=== PATIENT | female | born 1965 | race Caucasian/White ===

== ENCOUNTER 2017-05-18 07:15 | Observation (INO) | payer OTHER ==
[2017-06-29] MEDS ORDERED: GABAPENTIN 400 MG CAP PO ONE (06:14)
[2017-06-29] MEDS ORDERED: CLINDAMYCIN 900 MG/DEXTROSE 50 ML IV ONE (06:14)
[2017-06-29] MEDS ORDERED: PHENAZOPYRIDINE HCL 100 MG TAB PO ONE (06:14)
[2017-06-29] MEDS ORDERED: ACETAMINOPHEN 500 MG TAB PO ONE (06:14)
[2017-06-29] MEDS ORDERED: LIDOCAINE 1% 2 ML INJ ID PRN (06:19)
[2017-06-29] MEDS ORDERED: LR 1,000 ML IV ONE (06:19)
--- NOTE | 2017-06-29 07:07 | PDHPUP ---
History & Physical Update H&P update statement: This history and physical update is based on an assessment of the patient which was completed after admission or registration (within 24 hours), but prior to the surgery/procedure. H&P update: H&P reviewed & patient examined, no change in patient's condition since H&P completed
[2017-06-29] MEDS ORDERED: MIDAZOLAM 2 MG/2 ML VIAL ONE (07:10)
[2017-06-29] MEDS ORDERED: BUPIVACAINE 0.5% 30 ML SDV ONE (07:15)
[2017-06-29] MEDS ORDERED: fentaNYL 100 MCG/2 ML INJ ONE (07:21)
[2017-06-29] MEDS ORDERED: PROPOFOL/EMULSION 500 MG/50 ML BOTTLE IV ONE (07:21)
[2017-06-29] MEDS ORDERED: ALBUMIN 5% 250 ML BOTTLE IV ONE (07:26)
[2017-06-29] MEDS ORDERED: DEXMEDETOMIDINE HCL 200 MCG/2 ML VIAL IV ONE (07:27)
[2017-06-29] MEDS ORDERED: ONDANSETRON 4 MG/2 ML VIAL ONE (07:53)
[2017-06-29] MEDS ORDERED: SUGAMMADEX SODIUM 200 MG/2 ML VIAL IVP ONE (07:53)
[2017-06-29] MEDS ORDERED: LIDOCAINE 2% 5 ML SDV ONE (07:53)
[2017-06-29] MEDS ORDERED: KETOROLAC 30 MG/1 ML SDV ONE (07:53)
[2017-06-29] MEDS ORDERED: DEXAMETHASONE 4 MG/ML VIAL ONE ×2 (07:53→18:48)
[2017-06-29] MEDS ORDERED: ROCURONIUM 50 MG/5 ML VIAL ONE (07:53)
[2017-06-29] MEDS ORDERED: OXYCODONE/APAP 5/325 TAB PO PRN (08:34)
[2017-06-29] MEDS ORDERED: METOCLOPRAMIDE 10 MG/2 ML VIAL IVP PRN (08:34)
[2017-06-29] MEDS ORDERED: PROMETHAZINE HCL 25 MG/ML INJ IVP PRN ×2 (08:34→09:44)
[2017-06-29] MEDS ORDERED: MEPERIDINE 25 MG/ML SYR IVP PRN (08:34)
[2017-06-29] MEDS ORDERED: DEXAMETHASONE 4 MG/ML VIAL IVP PRN (08:34)
[2017-06-29] MEDS ORDERED: ACETAMINOPHEN 500 MG TAB PO PRN (08:34)
[2017-06-29] MEDS ORDERED: LR 500 ML IV PRN (08:34)
[2017-06-29] MEDS ORDERED: ONDANSETRON 4 MG/2 ML VIAL IVP PRN ×2 (08:34→09:44)
[2017-06-29] MEDS ORDERED: ALBUTEROL 3 ML DEYVIAL IH PRN (08:34)
[2017-06-29] MEDS ORDERED: NALOXONE HCL 0.4 MG/ML INJ IVP PRN (08:34)
[2017-06-29] MEDS ORDERED: HYDROCODONE/APAP 5/325 TAB PO PRN ×2 (08:34→09:44)
[2017-06-29] MEDS ORDERED: fentaNYL 100 MCG/2 ML INJ IVP PRN (08:34)
--- NOTE | 2017-06-29 08:34 | PDANEPAE ---
ANE Past Medical History - Cardiovascular History Hx Hypertension: No Hx Arrhythmias: No Hx Chest Pain: No Hx Coronary Artery / Peripheral Vascular Disease: No Hx CHF / Valvular Disease: No Hx Palpitations: No - Pulmonary History Hx COPD: No Hx Asthma/Reactive Airway Disease: No Hx Recent Upper Respiratory Infection: No Hx Oxygen in Use at Home: No Hx Sleep Apnea: No Sleep Apnea Screening Result - Last Documented: Negative - Neurologic History Hx Cerebrovascular Accident: No Hx Seizures: No Hx Dementia: No - Endocrine History Hx Diabetes: No - Renal History Hx Renal Disorders: No - Liver History Hx Hepatic Disorders: No - Neurological & Psychiatric Hx Hx Neurological and Psychiatric Disorders: No - Cancer History Hx Cancer: No - Congenital Disorder History Hx Congenital Disorders: No - GI History Hx Gastrointestinal Disorders: No - Other Health History Other Health History: none, intermittent psoriasis - Chronic Pain History Chronic Pain: No - Surgical History Prior Surgeries: none ANE Review of Systems Review of Systems: - Exercise capacity METS (RN): 4 METS ANE Patient History - Allergies Allergies/Adverse Reactions: Penicillins Allergy (Verified 06/29/17 07:39) - Home Medications Home Medications: Cholecalciferol Vit D3 [Vitamin D3 (*)] 1,000 units PO DAILY 04/11/17 [Last Taken 06/22/17] Herbals/Supplements -Info Only 1 ea PO DAILY 04/11/17 [Last Taken 06/22/17] Levothyroxine [Synthroid 75 mcg (*)] 75 mcg PO DAILY06 04/11/17 [Last Taken ] Multivitamins [Multivitamin (*)] 1 each PO DAILY 04/11/17 [Last Taken 06/22/17] - NPO status NPO Since - Liquids (Date): 06/29/17 NPO Since - Liquids (Time): 04:30 NPO Since - Solids (Date): 06/28/17 NPO Since - Solids (Time): 19:30 - Smoking Hx Smoking Status: Never smoked - Family Anes Hx Family Hx Anesthesia Complications: none ANE Labs/Vital Signs - Vital Signs Blood Pressure: 129/68 Heart Rate: 77 Respiratory Rate: 16 O2 Sat (%): 98 Height: 160.02 cm Weight: 49.895 kg ANE Physical Exam - Airway Neck exam: FROM Mallampati Score: Class 1 Mouth exam: normal dental/mouth exam - Pulmonary Pulmonary: no respiratory distress, no rales or rhonchi, clear to auscultation - Cardiovascular Cardiovascular: regular rate and rhythym, no murmur, rub, or gallop, systolic murmur - ASA Status ASA Status: II ANE Anesthesia Plan Anesthesia Plan: general endotracheal anesthesia
[2017-06-29] MEDS ORDERED: MAGNESIUM SULFATE 1 GM/2 ML VIAL ONE (09:15)
[2017-06-29] MEDS ORDERED: ZOLPIDEM TARTRATE 5 MG TAB PO PRN (09:44)
[2017-06-29] MEDS ORDERED: DIAZEPAM 10 MG/2 ML SYR IVP PRN (09:44)
[2017-06-29] MEDS ORDERED: HYDROmorphONE/DILAUDID 1 MG/ML INJ IVP PRN (09:44)
--- NOTE | 2017-06-29 09:44 | POSTOPPROG ---
Post Op Note Date of Operation: 06/29/17 Surgeon: Lonnie Miller Tanning Drum Operator: Alesia Reyes Anesthesiologist: Rachel Wolf Anesthesia: GET(General Endotracheal) Pre-op Diagnosis: Uterine fibroid Post-op Diagnosis: Same Procedure: Robotic hyst, cysto Findings: Ureters function at end of case Inf/Abcess present in the surg proc area at time of surgery?: No EBL: Minimal Complications: None
[2017-06-29] MEDS ORDERED: LR 1,000 ML IV SCH (10:00)
--- NOTE | 2017-06-29 10:49 | POSTANESTH ---
Post Anesthetic Evaluation Cardiovascular Status: Normal, Stable Respiratory Status: Normal, Stable Level of Consciousness/Mental Status: Moderately Sleepy Pain Control: Adequate, Prn Tx Ordered Nausea/Vomiting Control: Adequate, Prn Tx Ordered Complications Possibly Related to Anesthesia: None Noted
[2017-06-29] MEDS ORDERED: DIAZEPAM 10 MG/2 ML SYR ONE (10:51)
[2017-06-29] MEDS ORDERED: DIAZEPAM 10 MG/2 ML SYR IVP ONE (11:00)
[2017-06-29] MEDS: KETOROLAC 30 MG/1 ML SDV IVP SCH ×2 (15:10→20:54)
--- NOTE | 2017-06-29 17:25 | GOP ---
[f rep st] OPERATIVE REPORT DATE OF OPERATION: 06/29/2017 SURGEON: Lonnie Miller MD FINGER LIFT OPERATOR: Alesia Reyes CFA ANESTHESIA: General. PREOPERATIVE DIAGNOSIS: 1. Symptomatic fibroid uterus. 2. Uterine prolapse. POSTOPERATIVE DIAGNOSIS: 1. Symptomatic fibroid uterus. 2. Uterine prolapse. PROCEDURE PERFORMED: 1. Robotic-assisted total laparoscopic hysterectomy and bilateral salpingectomy. 2. Bilateral uterosacral ligament colpopexy. 3. Cystoscopy. FINDINGS: 388 g fibroid uterus. SPECIMENS: Uterus, cervix, and bilateral tubes. ESTIMATED BLOOD LOSS: Scant. DESCRIPTION OF PROCEDURE: The patient was taken to the operating room where she was identified. Gen eral anesthesia was administered and found to be adequate. She was placed in the lithotomy position and prepared and draped in normal sterile fashion. A [employer] uterine manipulator was placed into the e ndometrial cavity and sutured to the cervix. A Flores catheter was then placed. A 1 cm intraumbilical incision was made with a scalpel. The Veress needle with the CO2 gas line was advanced into the cavity. The abdomen was insufflated with carbon dioxide gas. The 12 mm trocar, fo llowed by the laparoscope, was then inserted. The upper abdomen was unremarkable. A globular fibroi d uterus was seen in the pelvis. The ovaries were unremarkable. Two lateral ports were placed in th e right and 1 on the left under direct visualization. She then was placed in Trendelenburg position, and the da Isidoro robot docked on the left side. The instruments were then brought into the abdomina l cavity under direct visualization. The left fallopian tube was along the mesosalpinx. The utero-ovarian ligament, followed by the round ligament, was then cauterized and transected. The anterior leaf of the broad ligament was then incised over the left uterine vessels and across the cervix. The bladder was gently dissected off the cervix and upper vagina. The left uterine vasculature was then cauterized and transected. T he exact same procedure was performed on the patient's right side. The left 3rd of the uterus was then incised to change the shape of the uterus from more globular to a more longitudinal shape to aid in removal through the vagina. A circumferential colpotomy incision was then made with the hot alex. I then scrubbed back into the case to remove the specimen from th e vagina. This did require some vaginal morcellation. The vaginal cuff was then closed with a running suture of 0 V-Loc 180. A bilateral uterosacral ligam ent colpopexy was performed by attaching the lateral aspects of the vaginal cuff to the ipsilateral u terosacral ligaments near their insertion into the coccygeal-sacrospinous ligament complexes. The pe lvis was then irrigated with sterile saline, and hemostasis was present. The robot was then undocked . The fascia was closed with 0 Vicryl and skin with 4-0 Monocryl and surgical adhesive. Cystoscopy was then performed. Both ureters had vigorous jets of urine. There was no evidence of bl adder nor urethral injury seen. No obvious pathology was seen. Anesthesia was reversed. The patien t was taken to the PACU awake and in stable condition. COMPLICATIONS: None. DISPOSITION: Patient stable to PACU. /[id number]/MODL
[2017-06-29] MEDS ORDERED: SCOPOLAMINE HYDROBROMIDE 1 MG/3 DAYS PATCH TD ONE (18:27)
[2017-06-29] MEDS ORDERED: METOCLOPRAMIDE 10 MG/2 ML VIAL ONE (18:48)
[2017-06-29] MEDS: DOCUSATE SODIUM 100 MG CAP PO SCH (20:56)
[2017-06-30] MEDS: KETOROLAC 30 MG/1 ML SDV IVP SCH ×2 (03:14→09:14)
[2017-06-30] MEDS ORDERED: LEVOTHYROXINE 75 MCG TAB PO SCH (06:00)
[2017-06-30] MEDS: DOCUSATE SODIUM 100 MG CAP PO SCH (09:15)
[2017-06-30 10:55] VITALS: BP 82/48; PULSE 66; RESP 17; TEMP 98; O2SAT 99
== END 2017-06-30 14:40 | disposition home or self-care (01) ==
LOC: F3E 06-29 05:40 → FOB 06-29 12:38
PROVIDERS: ADMIT Obstetrics & Gynecology; ATTEND Obstetrics & Gynecology
DX: D25.1 Intramural leiomyoma of uterus (principal); N81.4 Uterovaginal prolapse, unspecified
CPT/HCPCS: 57283; 58571; G0378; J1100; J1885; J1956; J2250; J2405; J2704; J2765; J3010; P9041

== ENCOUNTER → 2018-02-14 | Outpatient (CLI) | payer OTHER | LOC: FIMAGING 08:07 | PROVIDERS: ATTEND Internal Medicine | DX: Z12.31 Encounter for screening mammogram for malignant neoplasm of breast (principal) ==